=== PATIENT | male | born 1995 | race African-American/Black ===

== ENCOUNTER → 2016-10-22 17:30 | Emergency (ER) | payer SELFPAY ==
[2016-10-22 19:46] VITALS: BP 106/60
--- NOTE | 2016-10-23 13:04 | ED ---
hilario Mcgrath Timothy, scribed for Nael Smith MD on 10/22/16 at 1856 . Head Injury - HPI Summary HPI Summary: Kelsey Ahumada is a 21 yo male presenting to [facility]. Per EMs, Pt was drinking EtOH with friends when he fell and hit his head. Per triage, there are no mcconnell, and Pt denies pain or LOC. Per EMS [employer] was called and they told him he had to come to [facility] to be evaluated S/P head trauma. Pt states he was drinking EtOH and took one xanax. He denies any PMHx. - History Of Current Complaint Chief Complaint: EDSubstanceAbuse Stated Complaint: 2208 POSSIBLE OVERDOSE Time Seen by Provider: 10/22/16 17:56 Hx Obtained From: Patient Mechanism Of Injury: Fall From A Standing Position Onset/Duration: Started Hours Ago, Still Present Onset of Pain: Immediate Severity Currently: Moderate Severity Initially: Moderate Pain Intensity: 0 Pain Scale Used: 0-10 Numeric Location of Head Injury: Diffuse - Allergies/Home Medications Allergies/Adverse Reactions: Allergies Allergy/AdvReac Type Severity Reaction Status Date / Time No Known Allergies Allergy Unverified 10/01/15 09:44 PMH/Surg Hx/FS Hx/Imm Hx Endocrine/Hematology History: Denies: Hx Anticoagulant Therapy, Hx Blood Disorders Respiratory History: Reports: Hx Asthma GI History: Denies: Hx Gastroesophageal Reflux Disease History: Denies: Hx Acute Renal Failure Musculoskeletal History: Denies: Hx Arthritis, Other Musculoskeletal History Sensory History: Reports: Hx Contacts or Glasses Opthamlomology History: Reports: Hx Contacts or Glasses Neurological History: Denies: Hx Peripheral Neuropathy Psychiatric History: Denies: Hx Anxiety, Hx Depression, Hx Substance Abuse - Immunization History Date of Tetanus Vaccine: unknown Date of Influenza Vaccine: no Infectious Disease History: No Infectious Disease History: Denies: Hx of Known/Suspected MRSA, Hx Shingles, Traveled Outside the [place] in Last 30 Days - Family History Known Family History: Positive: None Negative: Cardiac Disease, Hypertension, Diabetes - Social History Alcohol Use: Weekly Substance Use Type: Reports: Prescribed Smoking Status (MU): Heavy Every Day Tobacco Smoker Review of Systems Constitutional: Negative Eyes: Negative ENT: Negative Cardiovascular: Negative Respiratory: Negative Gastrointestinal: Negative Genitourinary: Negative Musculoskeletal: Negative Skin: Negative Neurological: Other - head injury Psychological: Normal All Other Systems Reviewed And Are Negative: Yes Physical Exam Triage Information Reviewed: Yes Vital Signs On Initial Exam: Initial Vitals Temp Pulse Resp BP Pulse Ox 98.3 F 86 16 127/74 97 10/22/16 17:39 10/22/16 17:39 10/22/16 17:39 10/22/16 17:39 10/22/16 17:39 Vital Signs Reviewed: Yes Appearance: Positive: Well-Appearing, No Pain Distress, Well-Nourished Skin: Positive: Warm, Skin Color Reflects Adequate Perfusion, Dry Head/Face: Positive: Normal Head/Face Inspection Eyes: Positive: Normal ENT: Positive: Normal ENT inspection Neck: Positive: Supple, Nontender Respiratory/Lung Sounds: Positive: Clear to Auscultation, Breath Sounds Present Cardiovascular: Positive: RRR Abdomen Description: Positive: Nontender, Soft Bowel Sounds: Positive: Present Musculoskeletal: Positive: Normal Neurological: Positive: Normal Psychiatric: Positive: Normal, Affect/Mood Appropriate - [place] Coma Scale Coma Scale Total: 14 Diagnostics - Vital Signs Vital Signs Temp Pulse Resp BP Pulse Ox 10/22/16 17:39 98.3 F 86 16 127/74 97 - Laboratory Lab Statement: Any lab studies that have been ordered have been reviewed, and results considered in the medical decision making process. Head Injury Course/Dx Course Of Treatment: Mr. Ahumada fell promptly asleep shortly after arrival here and I observed him for a couple of hours. He woke up and continued to be cooperative and have no C/O. He was clinically sober and I let him go. Assessment/Plan: Kelsey Ahumada is a 21 yo male presenting to [facility] police order after falling and hitting his head while drinking EtOH with friends and taking one xanax. Pt denies any pain or LOC and would like to be discharged. - Diagnoses Provider Diagnoses: Head injury Discharge - Discharge Plan Condition: Stable Disposition: HOME Patient Education Materials: Head Injury (ED) Referrals: [facility] [Outside] - 2 Days Additional Instructions: Please follow up with the primary care physician provided regarding your visit to the emergency department today. Return to the emergency department with any new or recurring symptoms. The documentation as recorded by the hilario richard Timothy accurately reflects the service I personally performed and the decisions made by me, Nael Smith MD.
== END | disposition home or self-care (01) ==
LOC: ED 17:30
DX: S09.90XA Unspecified injury of head, initial encounter (principal); W19.XXXA Unspecified fall, initial encounter; Y93.9 Activity, unspecified; Y92.9 Unspecified place or not applicable; Y99.9 Unspecified external cause status; F17.210 Nicotine dependence, cigarettes, uncomplicated
CPT/HCPCS: 99282

== ENCOUNTER 2016-12-14 11:46 | Emergency (ER) | payer SELFPAY ==
[2016-12-14] MEDS ORDERED: Aspirin Low Dose CHEW TAB* 81 MG PO ONE (12:00)
[2016-12-14] MEDS ORDERED: LORazepam INJ* 2 MG/ML 1 ML VIAL IV PUSH ONE (12:01)
[2016-12-14 12:33] LABS: Hematocrit 45 % (42-52); Hemoglobin 15.2 g/dl (14.0-18.0); Mean Corpuscular HGB Conc 34 g/dl (31-36); Mean Corpuscular Hemoglobin 32 pg (27-31); Mean Corpuscular Volume 95 fL (80-94); Mean Platelet Volume 8 um3 (7.4-10.4); Red Blood Count 4.74 10^6/ul (4.0-5.4); Red Cell Distribution Width 13 % (10.5-15); White Blood Count 4.9 10^3/ul (3.5-10.8)
[2016-12-14 12:44] LABS: Albumin 4.3 g/dL (3.2-5.2); BUN/Creatinine Ratio 8.9 (8-20); Calcium 9.3 mg/dL (8.6-10.3); EGFR African American 119.9 (>60); EGFR Non-African American 93.2 (>60); Globulin 2.8 g/dL (2-4); Potassium 3.8 mmol/L (3.5-5.0); Total Bilirubin 0.8 mg/dL (0.2-1.0); Total Protein 7.1 g/dL (6.4-8.9)
--- NOTE | 2016-12-14 12:49 | RAD ---
INDICATION: Chest pain COMPARISON: None TECHNIQUE: An AP portable view obtained at 1220 hours is submitted. FINDINGS: Bones/Soft Tissues: There are no acute bony findings. Cardiomediastinal: The cardiomediastinal silhouette is normal. Lungs: There are no infiltrates. There is no pneumothorax. Pleura: There are no pleural effusions. Other: None IMPRESSION: NO ACTIVE DISEASE.
[2016-12-14] MEDS ORDERED: Albuterol/Ipratropium NEB.SOL* Albuterol 2.5 MG/Ipratropium 0.5 MG 3 ML INH ONE (13:00)
[2016-12-14 17:56] VITALS: BP 114/73
== END 2016-12-14 17:57 | disposition home or self-care (01) ==
LOC: ED 11:46
DX: R07.9 Chest pain, unspecified (principal)
CPT/HCPCS: 36415; 71010; 80053; 83605; 84484; 85025; 85379; 93005; 94640; 96374; 99283; A9270-GY; J2060

== ENCOUNTER 2017-01-09 09:07 | Emergency (ER) | payer SELFPAY ==
[2017-01-09] MEDS: NS 0.9% 1000 ML* 2,000 ML IV ONE (09:30)
[2017-01-09 09:44] LABS: Hematocrit 44 % (42-52); Hemoglobin 15.3 g/dl (14.0-18.0); Mean Corpuscular HGB Conc 35 g/dl (31-36); Mean Corpuscular Hemoglobin 32 pg (27-31); Mean Corpuscular Volume 93 fL (80-94); Mean Platelet Volume 8 um3 (7.4-10.4); Red Blood Count 4.78 10^6/ul (4.0-5.4); Red Cell Distribution Width 13 % (10.5-15); White Blood Count 6.7 10^3/ul (3.5-10.8)
[2017-01-09 09:55] LABS: ALT 15 U/L (7-52); AST 18 U/L (13-39); Albumin 4.8 g/dL (3.2-5.2); Alkaline Phosphatase 51 U/L (34-104); Anion Gap 6 mmol/L (2-11); BUN/Creatinine Ratio 7.9 (8-20); Blood Urea Nitrogen 7 mg/dL (6-24); CO2 Carbon Dioxide 28 mmol/L (22-32); Calcium 9.5 mg/dL (8.6-10.3); Chloride 103 mmol/L (101-111); Creatine Kinase 254 U/L (10-223); EGFR African American 138.8 (>60); EGFR Non-African American 107.9 (>60); Globulin 3.1 g/dL (2-4); Glucose 143 mg/dL (70-100); Potassium 3.5 mmol/L (3.5-5.0); Sodium 137 mmol/L (133-145); Total Protein 7.9 g/dL (6.4-8.9)
[2017-01-09 10:23] LABS: Acetaminophen < 15 mcg/mL; Alcohol < 10 mg/dL (<10); Salicylate < 2.50 mg/dL (<30)
[2017-01-09 10:32] LABS: TSH (Thyroid Stimulating Horm) 2.19 mcIU/mL (0.34-5.60)
[2017-01-09 13:11] LABS: Urine Bilirubin Negative (Negative); Urine Glucose Negative (Negative); Urine Nitrite Negative (Negative)
[2017-01-09 13:20] LABS: Benzodiazepine Urine Screen Presumptive Positive (None Detect)
[2017-01-09 15:02] VITALS: BP 125/93
--- NOTE | 2017-01-09 15:21 | ED ---
Geeta Mcgrath Edward, scribed for Nicholas Rincon MD on 01/09/17 at 0915 . 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 Denies SI. LOC. Pt states he has never done anything like this before. Denies pain, SOB. Pt reports marijuana use. - History Of Current Complaint Stated Complaint: OVERDOSE Hx Obtained From: Patient Onset/Duration of Drug/ETOH Abuse: Hours Timing Of Abuse: Recent Cessation For A Period Of Character: Lethargic Associated Signs And Symptoms: Negative - Allergies/Home Medications Allergies/Adverse Reactions: Allergies Allergy/AdvReac Type Severity Reaction Status Date / Time No Known Allergies Allergy Unverified 12/14/16 11:51 PMH/Surg Hx/FS Hx/Imm Hx Previously Healthy: No Endocrine/Hematology History: Denies: Hx Anticoagulant Therapy, Hx Blood Disorders Respiratory History: Reports: Hx Asthma GI History: Denies: Hx Gastroesophageal Reflux Disease History: Denies: Hx Acute Renal Failure Musculoskeletal History: Denies: Hx Arthritis, Other Musculoskeletal History Sensory History: Reports: Hx Contacts or Glasses Opthamlomology History: Reports: Hx Contacts or Glasses Neurological History: Denies: Hx Peripheral Neuropathy Psychiatric History: Denies: Hx Anxiety, Hx Depression, Hx Substance Abuse - Immunization History Date of Tetanus Vaccine: unknown Date of Influenza Vaccine: no Infectious Disease History: Denies: Hx of Known/Suspected MRSA, Hx Shingles - Family History Known Family History: Positive: Other - Stroke - great-grandparents Negative: Cardiac Disease, Hypertension, Diabetes - Social History Alcohol Use: Weekly Hx Substance Use: Yes Substance Use Type: Reports: Prescribed Substance Use Comment - Amount & Last Used: unspecified Hx Tobacco Use: Yes Smoking Status (MU): Heavy Every Day Tobacco Smoker Review of Systems Positive: Fatigue Eyes: Negative ENT: Negative Cardiovascular: Negative Respiratory: Negative Gastrointestinal: Negative Genitourinary: Negative Musculoskeletal: Negative Skin: Negative Neurological: Negative Psychological: Normal All Other Systems Reviewed And Are Negative: Yes Physical Exam - Summary Physical Exam Summary: The patient is well-nourished in no acute distress and in no acute pain. The patient is lethargic but arousable. The skin is warm and dry and skin color reflects adequate perfusion. HEENT: The head is normocephalic and atraumatic. The pupils are equal and reactive. The conjunctivae are clear and without drainage. Nares are patent and without drainage. Mouth reveals moist mucous membranes and the throat is without erythema and exudate. The external ears are intact. The ear canals are patent and without drainage. The tympanic membranes are intact. Pupils not pinpoint but reactive. Neck is supple with full range of motion and non-tender. There are no carotid bruits. There is no neck vein distension. Respiratory: Chest is non-tender. Lungs are clear to auscultation and breath sounds are symmetrical and equal. Cardiovascular: Hear is regular rate and rhythm. There is no murmur or rub auscultated. There is no peripheral edema and pulses are symmetrical and equal. Abdomen: The abdomen is soft and non-tender. There are normal bowel sounds heard in all four quadrants and there is no organomegaly palpated. Musculoskeletal: There is no back pain noted. Extremities are non-tender with full range of motion. There is good capillary refill. There is no peripheral edema or calf tenderness elicited. Neurological: Patient is alert and oriented to person, place and time. The patient has symmetrical motor strength in all four extremities. Cranial nerves are grossly intact. Deep tendon reflexes are symmetrical and equal in all four extremities. Pt follows commands. There are no neurological deficits noted. Psychiatric: The patient has an appropriate affect and does not exhibit any anxiety or depression. Triage Information Reviewed: Yes Vital Signs On Initial Exam: Initial Vitals Temp Pulse Resp BP Pulse Ox 97.1 F 74 22 171/116 95 01/09/17 09:14 01/09/17 09:14 01/09/17 09:14 01/09/17 09:14 01/09/17 09:14 Vital Signs Reviewed: Yes Diagnostics - Vital Signs Vital Signs Temp Pulse Resp BP Pulse Ox 01/09/17 15:01 97.3 F 68 18 125/93 01/09/17 15:00 60 15 98 01/09/17 14:58 59 12 125/93 98 01/09/17 14:00 59 13 98 01/09/17 13:09 48 12 95 01/09/17 12:11 14 01/09/17 11:30 72 15 130/86 98 01/09/17 10:00 70 19 154/111 95 01/09/17 09:30 69 21 160/112 96 01/09/17 09:18 97.1 F 72 21 171/116 98 01/09/17 09:14 97.1 F 74 22 171/116 95 - Laboratory Lab Results: Lab Results 01/09/17 01/09/17 01/09/17 Range/Units 09:20 09:20 09:20 WBC 6.7 (3.5-10.8) 10^3/ul RBC 4.78 (4.0-5.4) 10^6/ul Hgb 15.3 (14.0-18.0) g/dl Hct 44 (42-52) % MCV 93 (80-94) fL MCH 32 H (27-31) pg MCHC 35 (31-36) g/dl RDW 13 (10.5-15) % Plt Count 216 (150-450) 10^3/ul MPV 8 (7.4-10.4) um3 Neut % (Auto) 63.3 (38-83) % Lymph % (Auto) 24.6 L (25-47) % [place] % (Auto) 9.2 H (1-9) % Eos % (Auto) 2.5 (0-6) % Baso % (Auto) 0.4 (0-2) % Absolute Neuts (auto) 4.2 (1.5-7.7) 10^3/ul Absolute Lymphs (auto) 1.6 (1.0-4.8) 10^3/ul Absolute Monos (auto) 0.6 (0-0.8) 10^3/ul Absolute Eos (auto) 0.2 (0-0.6) 10^3/ul Absolute Basos (auto) 0 (0-0.2) 10^3/ul Absolute Nucleated RBC 0 10^3/ul Nucleated RBC % 0 Sodium 137 (133-145) mmol/L Potassium 3.5 (3.5-5.0) mmol/L Chloride 103 (101-111) mmol/L Carbon Dioxide 28 (22-32) mmol/L Anion Gap 6 (2-11) mmol/L BUN 7 (6-24) mg/dL Creatinine 0.89 (0.67-1.17) mg/dL Est GFR ( Amer) 138.8 (>60) Est GFR (Non-Af Amer) 107.9 (>60) BUN/Creatinine Ratio 7.9 L (8-20) Glucose 143 H (70-100) mg/dL Lactic Acid 1.7 (0.5-2.0) mmol/L Calcium 9.5 (8.6-10.3) mg/dL Total Bilirubin 0.70 (0.2-1.0) mg/dL AST 18 (13-39) U/L ALT 15 (7-52) U/L Alkaline Phosphatase 51 (34-104) U/L Total Creatine Kinase 254 H (10-223) U/L Troponin I 0.00 (<0.04) ng/mL Total Protein 7.9 (6.4-8.9) g/dL Albumin 4.8 (3.2-5.2) g/dL Globulin 3.1 (2-4) g/dL Albumin/Globulin Ratio 1.5 (1-3) TSH 2.19 (0.34-5.60) mcIU/mL Urine Color Urine Appearance Urine pH (5-9) Ur Specific [place] (1.010-1.030) Urine Protein (Negative) Urine Ketones (Negative) Urine Blood (Negative) Urine Nitrate (Negative) Urine Bilirubin (Negative) Urine Urobilinogen (Negative) Ur Leukocyte Esterase (Negative) Urine Glucose (Negative) Salicylates < 2.50 (<30) mg/dL Urine Opiates Screen (None Detect) Acetaminophen < 15 mcg/mL Ur Barbiturates Screen (None Detect) Ur Phencyclidine Scrn (None Detect) Ur Amphetamines Screen (None Detect) U Benzodiazepines Scrn (None Detect) Urine Cocaine Screen (None Detect) U Cannabinoids Screen (None Detect) Serum Alcohol < 10 (<10) mg/dL 01/09/17 01/09/17 Range/Units 12:46 12:46 WBC (3.5-10.8) 10^3/ul RBC (4.0-5.4) 10^6/ul Hgb (14.0-18.0) g/dl Hct (42-52) % MCV (80-94) fL MCH (27-31) pg MCHC (31-36) g/dl RDW (10.5-15) % Plt Count (150-450) 10^3/ul MPV (7.4-10.4) um3 Neut % (Auto) (38-83) % Lymph % (Auto) (25-47) % [place] % (Auto) (1-9) % Eos % (Auto) (0-6) % Baso % (Auto) (0-2) % Absolute Neuts (auto) (1.5-7.7) 10^3/ul Absolute Lymphs (auto) (1.0-4.8) 10^3/ul Absolute Monos (auto) (0-0.8) 10^3/ul Absolute Eos (auto) (0-0.6) 10^3/ul Absolute Basos (auto) (0-0.2) 10^3/ul Absolute Nucleated RBC 10^3/ul Nucleated RBC % Sodium (133-145) mmol/L Potassium (3.5-5.0) mmol/L Chloride (101-111) mmol/L Carbon Dioxide (22-32) mmol/L Anion Gap (2-11) mmol/L BUN (6-24) mg/dL Creatinine (0.67-1.17) mg/dL Est GFR ( Amer) (>60) Est GFR (Non-Af Amer) (>60) BUN/Creatinine Ratio (8-20) Glucose (70-100) mg/dL Lactic Acid (0.5-2.0) mmol/L Calcium (8.6-10.3) mg/dL Total Bilirubin (0.2-1.0) mg/dL AST (13-39) U/L ALT (7-52) U/L Alkaline Phosphatase (34-104) U/L Total Creatine Kinase (10-223) U/L Troponin I (<0.04) ng/mL Total Protein (6.4-8.9) g/dL Albumin (3.2-5.2) g/dL Globulin (2-4) g/dL Albumin/Globulin Ratio (1-3) TSH (0.34-5.60) mcIU/mL Urine Color Colorless Urine Appearance Clear Urine pH 8.0 (5-9) Ur Specific [place] 1.004 L (1.010-1.030) Urine Protein Negative (Negative) Urine Ketones Negative (Negative) Urine Blood Negative (Negative) Urine Nitrate Negative (Negative) Urine Bilirubin Negative (Negative) Urine Urobilinogen Negative (Negative) Ur Leukocyte Esterase Negative (Negative) Urine Glucose Negative (Negative) Salicylates (<30) mg/dL Urine Opiates Screen None detected (None Detect) Acetaminophen mcg/mL Ur Barbiturates Screen None detected (None Detect) Ur Phencyclidine Scrn None detected (None Detect) Ur Amphetamines Screen Presumptive positive H (None Detect) U Benzodiazepines Scrn Presumptive positive H (None Detect) Urine Cocaine Screen None detected (None Detect) U Cannabinoids Screen Presumptive positive H (None Detect) Serum Alcohol (<10) mg/dL Result Diagrams: 01/09/17 09:20 01/09/17 09:20 Lab Statement: Any lab studies that have been ordered have been reviewed, and results considered in the medical decision making process. - EKG 1 EKG Rhythm: Sinus Rhythm - @ 73 BPM EKG Interpretation: 09:21 - Normal axis. 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 Pt is fatigued in the ED. Denies SI. LOC. Pt states he has never done anything like this before. Denies pain, SOB. Pt reports marijuana use. EKG 09:21 - SR @ 73 BPM. Normal axis. Hyperacute T waves not suggestive of STEMI. Pt will be d/c home with f/u with PCP. - Diagnoses Differential Diagnosis/HQI/PQRI: Positive: Metabolic Disorder, Other - substance abuse, no evidence of depression, recrational abuse Provider Diagnoses: Polysubstance abuse Discharge - Discharge Plan Condition: Stable Disposition: HOME Patient Education Materials: Polysubstance Abuse (ED) Referrals: [facility] [Outside] - 3 Days (PLEASE F/U IN 2-3 DAYS) The documentation as recorded by the Geeta richard Edward accurately reflects the service I personally performed and the decisions made by , Nicholas Rincon MD.
== END 2017-01-09 15:01 | disposition home or self-care (01) ==
LOC: ED 09:07
DX: R53.83 Other fatigue (principal); F19.10 Other psychoactive substance abuse, uncomplicated; F17.210 Nicotine dependence, cigarettes, uncomplicated
CPT/HCPCS: 36415; 80053; 80307; 80320; 80329; 81003; 82550; 83605; 84443; 84484; 85025; 93005; 99283; G0480

== ENCOUNTER 2017-02-11 01:20 | Emergency (ER) | payer SELFPAY ==
--- NOTE | 2017-02-11 06:02 | ED ---
Reece Mcgrath Rebecca, scribed for Kit Rockwell MD on 02/11/17 at 0139 . Substance Abuse/Use - HPI Summary HPI Summary: pt is a 21 y/o M BIB police as a 2208 who presents to ED as stuporous. Per triage, he was found by police walking in the street, then at [facility]. Per triage, EtOH and drug use was reported, though on evaluation pt states "I took 2 Xanax" and denies any other alcohol or drug use. Per police, pt was staggering and fell multiple times while transporting him. - History Of Current Complaint Chief Complaint: EDSubstanceAbuse Stated Complaint: 2208 Time Seen by Provider: 02/11/17 01:30 Hx Obtained From: Patient, Other: - Police Ingestion History: Type/Name Of Drug - Xanax, suspected EtOH and drug use Overdose Characteristics: Oral Character: Stuporous Aggravating Factor(s): Nothing Alleviating Factor(s): Nothing - Allergies/Home Medications Allergies/Adverse Reactions: Allergies Allergy/AdvReac Type Severity Reaction Status Date / Time No Known Allergies Allergy Unverified 12/14/16 11:51 PMH/Surg Hx/FS Hx/Imm Hx Endocrine/Hematology History: Denies: Hx Anticoagulant Therapy, Hx Blood Disorders Respiratory History: Reports: Hx Asthma GI History: Denies: Hx Gastroesophageal Reflux Disease History: Denies: Hx Acute Renal Failure Musculoskeletal History: Denies: Hx Arthritis, Other Musculoskeletal History Sensory History: Reports: Hx Contacts or Glasses Opthamlomology History: Reports: Hx Contacts or Glasses Neurological History: Denies: Hx Peripheral Neuropathy Psychiatric History: Reports: Hx Anxiety Denies: Hx Depression, Hx Substance Abuse - Immunization History Date of Tetanus Vaccine: unknown Date of Influenza Vaccine: no Infectious Disease History: No Infectious Disease History: Denies: Hx of Known/Suspected MRSA, Hx Shingles, Traveled Outside the [place] in Last 30 Days - Family History Known Family History: Positive: Other - Stroke - great-grandparents Negative: Cardiac Disease, Hypertension, Diabetes - Social History Alcohol Use: Weekly Hx Substance Use: Yes Substance Use Type: Reports: Prescribed Substance Use Comment - Amount & Last Used: unspecified Hx Tobacco Use: Yes Smoking Status (MU): Heavy Every Day Tobacco Smoker Review of Systems Negative: Fever Positive: Other - Stuporous s/p suspected drug use All Other Systems Reviewed And Are Negative: Yes Physical Exam - Summary Physical Exam Summary: General: well-appearing, no pain distress Skin: warm, color reflects adequate perfusion, dry Head: normal Eyes: EOMI, MITIZ ENT: normal Neck: supple, nontender Respiratory: CTA, breath sounds present Cardiovascular: RRR Abdomen: soft, nontender Bowel: present Musculoskeletal: normal, strength/ROM intact Neurological: normal, sensory/motor intact, A&O x3 Psychological: stuporous Triage Information Reviewed: Yes Vital Signs On Initial Exam: Initial Vitals Temp Pulse Resp BP Pulse Ox 98.8 F 101 16 130/51 96 02/11/17 01:20 02/11/17 01:20 02/11/17 01:20 02/11/17 01:20 02/11/17 01:20 Vital Signs Reviewed: Yes Diagnostics - Vital Signs Vital Signs Temp Pulse Resp BP Pulse Ox 02/11/17 01:20 98.8 F 101 16 130/51 96 - Laboratory Lab Statement: Any lab studies that have been ordered have been reviewed, and results considered in the medical decision making process. Course/Dx - Course Assessment/Plan: Patient medications reviewed. BP noted and advised to f/u with PCP. DISCHARGE HOME STABLE. - Diagnoses Provider Diagnoses: Altered mental state Discharge - Discharge Plan Condition: Stable Disposition: HOME Patient Education Materials: Altered Mental Status (ED) Referrals: No Primary Care Phys,NOPCP [Primary Care Provider] - Additional Instructions: FOLLOW UP WITH YOUR DOCTOR. RETURN TO THE EMERGENCY DEPARTMENT FOR ANY WORSENING OF YOUR CONDITION OR QUESTIONS OR CONCERNS. The documentation as recorded by the Reece richard Rebecca accurately reflects the service I personally performed and the decisions made by me, Kit Rockwell MD.
[2017-02-11 08:08] VITALS: BP 125/74
== END 2017-02-11 08:07 | disposition home or self-care (01) ==
LOC: ED 01:20
DX: R41.82 Altered mental status, unspecified (principal); F17.210 Nicotine dependence, cigarettes, uncomplicated
CPT/HCPCS: 99282

== ENCOUNTER 2017-05-26 14:36 | Emergency (ER) | payer SELFPAY ==
[2017-05-26 19:02] VITALS: BP 143/73
--- NOTE | 2017-05-27 11:39 | ED ---
Clarita Mcgrath Thomas, scribed for Nael Smith MD on 05/26/17 at 1834 . Complex/Multi-Sys Presentation - HPI Summary HPI Summary: This patient is a 21 year old M presenting to [facility] with chief complaints of dental pain and epigastric pain since 2 months ago. The pain radiates down from his right jaw to neck. The patient rates the pain 5/10 in severity. Symptoms aggravated by breathing. Symptoms alleviated by nothing. The patient does not have health insurance and he has been unable to see a dentist. - History Of Current Complaint Chief Complaint: EDDentalPain Time Seen by Provider: 05/26/17 17:48 Hx Obtained From: Patient Onset/Duration: Gradual Onset, Lasting Weeks, Still Present Timing: Constant Severity Currently: Moderate - 5/10 Location: Pain At: - of dental pain and epigastric pain, Radiates To: - The pain radiates down from his right jaw to neck. Aggravating Factor(s): Symptoms aggravated by breathing - Allergies/Home Medications Allergies/Adverse Reactions: Allergies Allergy/AdvReac Type Severity Reaction Status Date / Time No Known Allergies Allergy Unverified 12/14/16 11:51 PMH/Surg Hx/FS Hx/Imm Hx Endocrine/Hematology History: Denies: Hx Anticoagulant Therapy, Hx Blood Disorders Respiratory History: Reports: Hx Asthma GI History: Denies: Hx Gastroesophageal Reflux Disease History: Denies: Hx Acute Renal Failure Musculoskeletal History: Denies: Hx Arthritis, Other Musculoskeletal History Sensory History: Reports: Hx Contacts or Glasses Opthamlomology History: Reports: Hx Contacts or Glasses Neurological History: Denies: Hx Peripheral Neuropathy Psychiatric History: Reports: Hx Anxiety Denies: Hx Depression, Hx Substance Abuse - Immunization History Date of Tetanus Vaccine: unknown Date of Influenza Vaccine: no Infectious Disease History: No Infectious Disease History: Denies: Hx of Known/Suspected MRSA, Hx Shingles, Traveled Outside the [place] in Last 30 Days - Family History Known Family History: Positive: None, Other - Stroke - great-grandparents Negative: Cardiac Disease, Hypertension, Diabetes - Social History Alcohol Use: Weekly Hx Substance Use: Yes Substance Use Type: Reports: Prescribed Substance Use Comment - Amount & Last Used: unspecified Hx Tobacco Use: Yes Smoking Status (MU): Heavy Every Day Tobacco Smoker Review of Systems Negative: Fever Positive: Dental Pain Positive: Abdominal Pain All Other Systems Reviewed And Are Negative: Yes Physical Exam - Summary Physical Exam Summary: Appearance: The patient is well-nourished in no acute distress and in no acute pain. Skin: The skin is warm and dry and skin color reflects adequate perfusion. No cellulitis. HEENT: The head is normocephalic and atraumatic. The pupils are equal and reactive. The conjunctivae are clear and without drainage. Nares are patent and without drainage. Mouth reveals moist mucous membranes and the throat is without erythema and exudate. There is poor dentition with necrotic teeth. The external ears are intact. The ear canals are patent and without drainage. The tympanic membranes are intact. Neck: the neck is supple with full range of motion and non-tender. There are no carotid bruits. There is no neck vein distension. Respiratory: Chest is non-tender. Lungs are clear to auscultation and breath sounds are symmetrical and equal. Cardiovascular: Heart is regular rate and rhythm. There is no murmur or rub auscultated. There is no peripheral edema and pulses are symmetrical and equal. Abdomen: The abdomen is soft and there is epigastric tenderness. There are normal bowel sounds heard in all four quadrants and there is no organomegaly palpated. Musculoskeletal: There is no back tenderness noted. Extremities are non-tender with full range of motion. There is good capillary refill. There is no peripheral edema or calf tenderness elicited. Neurological: Patient is alert and oriented to person, place and time. The patient has symmetrical motor strength in all four extremities. Cranial nerves are grossly intact. Deep tendon reflexes are symmetrical and equal in all four extremities. Psychiatric: The patient has an appropriate affect and does not exhibit any anxiety or depression. Triage Information Reviewed: Yes Vital Signs On Initial Exam: Initial Vitals Temp Pulse Resp BP Pulse Ox 99.1 F 91 18 149/90 100 05/26/17 14:42 05/26/17 14:42 05/26/17 14:42 05/26/17 14:42 05/26/17 14:42 Vital Signs Reviewed: Yes Dental: Positive: Cellulitis @ - No sign of cellulitis or abscess - [place] Coma Scale Coma Scale Total: 15 Diagnostics - Vital Signs Vital Signs Temp Pulse Resp BP Pulse Ox 05/26/17 16:46 99 F 81 20 144/76 100 05/26/17 14:42 99.1 F 91 18 149/90 100 - Laboratory Lab Statement: Any lab studies that have been ordered have been reviewed, and results considered in the medical decision making process. Complex Multi-Symp Course/Dx Course Of Treatment: Mr. Ahumada presented with dental pain and epigastric pain that he has been battling for a couple months while he waits for insurance. His exam revealed poor dentition with no urgency and he had mild epigastric tenderness. I will give him antibiotics and pain medication for his teeth while he gets into a dentist and start him on omeprazole temporarily. - Diagnoses Provider Diagnoses: Epigastric pain, Tooth ache Discharge - Discharge Plan Condition: Stable Disposition: HOME Prescriptions: Omeprazole CAP* [Prilosec CAP* 20 MG] 20 mg PO BID #20 cap. Penicillin VK TAB* [Penicillin VK 250 mg Tab*] 500 mg PO QID #40 tab traMADol TAB* [Ultram*] 25 mg PO Q6HR PRN #20 tab MDD 4 PRN Reason: Pain traMADol TAB* [Ultram*] 25 mg PO Q6HR PRN #20 tab MDD 4 PRN Reason: Pain traMADol TAB* [Ultram*] 25 mg PO Q6HR PRN #20 tab MDD 4 PRN Reason: Pain Patient Education Materials: Toothache (ED), Epigastric Pain (ED) [place] [facility] [place] [facility] [place]Outside] - 3 Days Additional Instructions: Use the physician referral service to find a primary care physician and make an appointment. Also, you should follow up with a dentist. Return to the emergency department for any new or worsening symptoms. The documentation as recorded by the Clarita richard Thomas accurately reflects the service I personally performed and the decisions made by me, Nael Smith MD.
== END 2017-05-26 19:01 | disposition home or self-care (01) ==
LOC: ED 14:36
DX: K08.89 Other specified disorders of teeth and supporting structures (principal); R10.13 Epigastric pain
CPT/HCPCS: 99282

== ENCOUNTER 2017-07-05 10:37 | Emergency (ER) | payer SELFPAY ==
[2017-07-05 10:47] VITALS: BP 118/79
--- NOTE | 2017-07-05 11:08 | UC ---
Respiratory Complaint HPI - HPI Summary HPI Summary: 21 y/o male presents to the urgent care c/o dry cough w/ chest pain for the past 5 days. Pt reports symptoms started w/ common cold, body aches,SANTOYO, chills. then cough, however mild epigastric abdominal pain radiating to the chest developed, specially when he coughs. Pt states he had similar symptoms last year. He went to the ER and after all tests were normal, he was d/c home. He doesn't have a PCP. He states he drinks alcohol and smokes on a daily bases. Pain 7/10 sharp at times and aggravated w/ movement or when he coughs. Pt denies fever, chills,SOB abdominal pain, N/V/D. Pt smokes marijuana occasionally - History of Current Complaint Chief Complaint: UCRespiratory Stated Complaint: CHEST PAIN Time Seen by Provider: 07/05/17 11:07 Hx Obtained From: Patient Onset/Duration: Gradual Onset, Lasting Weeks - 1 week, Still Present, Worse Since - yesterday Timing: Intermittent Episodes Severity Initially: Mild Severity Currently: Moderate Pain Intensity: 7 Pain Scale Used: 0-10 Numeric Character: Cough: Nonproductive Aggravating Factors: Other - sitting Alleviating Factors: Nothing Associated Signs And Symptoms: Positive: Chills, URI, Nasal Congestion. Negative: Fever - Risk Factors Pulmonary Embolism Risk Factors: Negative Cardiac Risk Factors: Negative Pseudomonas Risk Factors: Negative Tuberculosis Risk Factors: Negative - Allergies/Home Medications Allergies/Adverse Reactions: Allergies Allergy/AdvReac Type Severity Reaction Status Date / Time No Known Allergies Allergy Unverified 12/14/16 11:51 PMH/Surg Hx/FS Hx/Imm Hx Previously Healthy: Yes Respiratory History: Asthma Other History Of: Negative For: Anticoagulant Therapy - Surgical History Surgical History: Unable to Obtain/Confirm - Family History Known Family History: Positive: None, Diabetes Negative: Cardiac Disease, Hypertension Family History: Stroke - great-grandparents - Social History Occupation: Student Lives: With Family Alcohol Use: Weekly Substance Use Type: Prescribed Substance Use Comment - Amount & Last Used: unspecified Smoking Status (MU): Heavy Every Day Tobacco Smoker Household Exposure Type: Cigarettes Review of Systems Constitutional: Negative Skin: Negative Eyes: Negative ENT: Nasal Discharge, Sinus Congestion Respiratory: Cough - dry Cardiovascular: Chest Pain Gastrointestinal: Abdominal Pain - epigastri abdominal pain Genitourinary: Negative Motor: Negative Neurovascular: Negative Musculoskeletal: Negative Neurological: Negative Psychological: Negative Is Patient Immunocompromised?: No All Other Systems Reviewed And Are Negative: Yes Physical Exam Triage Information Reviewed: Yes Vital Signs: Initial Vital Signs Temp 97.3 F 07/05/17 10:44 Pulse 75 07/05/17 10:44 Resp 16 07/05/17 10:44 BP 118/79 07/05/17 10:44 Pulse Ox 100 07/05/17 10:44 - Additional Comments VITAL SIGNS: Reviewed. GENERAL: Patient is a well developed and nourished male who is sitting comfortable in the examining table. Patient is not in any acute respiratory distress. HEAD AND FACE: No signs of trauma. No ecchymosis, hematomas or skull depressions. No sinus tenderness. edematous erythematous nasal mucosa with yellowish discharge, EYES: PERRLA, EOMI x 2, No injected conjunctiva, clear watery eyes, no nystagmus. No photophobia. EARS: Hearing grossly intact. Ear canals and tympanic membranes are within normal limits. MOUTH: Positive pharynx with erythema, no exudates,no palatal petechiae. no B/L tonsillar enlargement Uvula in midline. NECK: Supple, trachea is midline, Positive anterior cervical lymphadenopathy, no JVD, no carotid bruit, no c-spine tenderness, neck with full ROM. No meningeal signs, no Kernig's or brudzinskis signs. CHEST: Symmetric, no tenderness at palpation LUNGS: Clear to auscultation bilaterally. No wheezing, rhonchi or crackles. CVS: Regular rate and rhythm, S1 and S2 present, no murmurs or gallops appreciated. ABDOMEN: Flat with no distention. No surface trauma, scars, incisions. hyperactive bowel sounds present in all four quadrants. Tenderness over the epigastric area., no guarding, rigidity to palpation. No masses palpated, no pulsation in epigastric area. No organomegaly. Negative [place] signs. No periumbilical tenderness. No rebound in the lower quadrants. NT over McBurneys point. Good femoral pulses bilaterally. No hernia noted. No CVAT bilaterally. EXTREMITIES: FROM in all major joints, no edema, no cyanosis or clubbing. NEURO: Alert and oriented x 3. No acute neurological deficits. Speech is normal and follows commands. SKIN: Dry and warm UC Diagnostic Evaluation - Laboratory O2 Sat by Pulse Oximetry: 100 Respiratory Course/Dx - Course Course Of Treatment: 21 y/o male presents to the urgent care c/o dry cough w/ chest pain for the past 5 days. Pt reports symptoms started w/ common cold, body aches,SANTOYO, chills. then cough, however mild epigastric abdominal pain radiating to the chest developed, specially when he coughs. Pt states he had similar symptoms last year. He went to the ER and after all tests were normal, he was d/c home. He doesn't have a PCP. He states he drinks alcohol and smokes on a daily bases. Pain 7/10 sharp at times and aggravated w/ movement or when he coughs. Pt denies fever, chills,SOB abdominal pain, N/V/D. Pt smokes marijuana occasionally.Hx obtained. Pt w/ URI and epigastric tenderness on examination. EKG ordered: NSR, No ST -elevation or depressions, HR 65bpm.Probably normal repolarization.Similar EKG's when compared w/ previous one. Pt probably developing a gastritis. Pt Rx Famotidine PO and Tessalon tabs to alleviate symptoms. Pt educated on dieatry modifications, smoke cessation. Pt strongly advised to f/u with GI DR Turner as soon as he gets insurance for further evalaution and treatmetn. Lyndsay given [facility] referral line to f/u w/ a PCP. Pt understood and agreed w/ D/C instructions. Pt left the clinic hemodynamically stable - Differential Dx/Diagnosis Differential Diagnosis/HQI/PQRI: Asthma, Bronchitis, Influenza, Lower Resp Infection, Sinusitis, Other - arrhythmias, GERD, gastritis. Provider Diagnoses: 1- Acute epigastric abdominal pain. 2-Upper respiratory infection Discharge - Discharge Plan Condition: Stable Disposition: HOME Prescriptions: Benzonatate CAP* [Tessalon 100 MG CAP*] 100 mg PO TID PRN #21 cap PRN Reason: Cough Famotidine TAB* [Pepcid 20 MG TAB*] 20 mg PO BID #60 tab Patient Education Materials: Gastritis (ED), Upper Respiratory Infection (ED) Referrals: [facility] [Outside] - 1 Week Kalyan Vaughn MD [Medical Doctor] - 1 Week Additional Instructions: 1- Please take mediation as directed. Start dietary modification; avoid drinking alcohol, smoking, eat spicy food, chocolates, citric fruits. Avoid logn periods of time w/o eating anything. 2- Please f/u W/ [facility] [employer] Dr Turner for further evaluation and treatment on you symptoms. 3- Please Take Tessalon Tabs pO to alleviate cough. Increase fluid intake , eat well and rest. 4-If you develop severe epigastric pain or chest pain w/ sOB please go immediately to the ER for further management
== END 2017-07-05 12:04 | disposition home or self-care (01) ==
LOC: UCEAST 10:37
DX: R10.13 Epigastric pain (principal); J06.9 Acute upper respiratory infection, unspecified; J45.909 Unspecified asthma, uncomplicated; F17.210 Nicotine dependence, cigarettes, uncomplicated
CPT/HCPCS: 93005; 99212; G0463

== ENCOUNTER 2018-02-06 16:22 | Emergency (ER) | payer MEDICAID ==
[2018-02-06] MEDS ORDERED: Al Hydrox/Mg Hydrox/Simet LIQ* 30 ML UDC PO ONE (17:44)
[2018-02-06] MEDS ORDERED: Lidocaine 2% VISCOUS* 15 ML UDC PO ONE (17:44)
--- NOTE | 2018-02-06 17:50 | ED ---
GI/ HPI - HPI Summary HPI Summary: Pt. is a 22 y.o male who presents to the ER for complaints of epigastric pain, blood and urine and stool. 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 Pt. states he has a history of GI ulcer and currently takes omeprazole. Pt. states over the last several days he has noticed bright red blood in his stool. No pain with bowel movement or diarrhea. He also notes blood in urine. No other significant past medical hx. Pt. denies alcohol or drug use. Symptoms are moderate in severity. No current modifying factors. Pt. states he has an apt. with his PCP in two days. - History of Current Complaint Chief Complaint: EDGIBleed Time Seen by Provider: 02/06/18 17:34 Stated Complaint: BLOOD IN STOOL Hx Obtained From: Patient Pain Intensity: 6 - Allergy/Home Medications Allergies/Adverse Reactions: Allergies Allergy/AdvReac Type Severity Reaction Status Date / Time No Known Allergies Allergy Verified 02/06/18 16:34 Home Medications: Home Medications Gabapentin 600 mg PO BID 02/06/18 [History Confirmed 02/06/18] Ibuprofen TAB* [Motrin TAB* 600 MG] 600 mg PO Q8H PRN 02/06/18 [History Confirmed 02/06/18] PMH/Surg Hx/FS Hx/Imm Hx Previously Healthy: Yes Endocrine/Hematology History: Denies: Hx Anticoagulant Therapy, Hx Blood Disorders Respiratory History: Reports: Hx Asthma GI History: Denies: Hx Gastroesophageal Reflux Disease History: Denies: Hx Acute Renal Failure Musculoskeletal History: Denies: Hx Arthritis, Other Musculoskeletal History Sensory History: Reports: Hx Contacts or Glasses Opthamlomology History: Reports: Hx Contacts or Glasses Neurological History: Denies: Hx Peripheral Neuropathy Psychiatric History: Reports: Hx Anxiety Denies: Hx Depression, Hx Substance Abuse - Immunization History Date of Tetanus Vaccine: unknown Date of Influenza Vaccine: no Infectious Disease History: No Infectious Disease History: Denies: Hx of Known/Suspected MRSA, Hx Shingles, Traveled Outside the [place] in Last 30 Days - Family History Known Family History: Positive: None, Diabetes, Other - Stroke - great- grandparents Negative: Cardiac Disease, Hypertension Family History: Stroke - great-grandparents - Social History Occupation: Employed Full-time Lives: With Family Alcohol Use: Weekly Hx Substance Use: Yes Substance Use Type: Reports: Prescribed Substance Use Comment - Amount & Last Used: unspecified Hx Tobacco Use: Yes Smoking Status (MU): Heavy Every Day Tobacco Smoker Review of Systems Constitutional: Negative Negative: Fever, Chills Eyes: Negative ENT: Negative Cardiovascular: Negative Negative: Palpitations, Chest Pain Respiratory: Negative Negative: Shortness Of Breath, Cough Positive: Abdominal Pain. Negative: Vomiting, Diarrhea, Nausea Positive: hematuria. Negative: dysuria, flank pain Skin: Negative Neurological: Negative All Other Systems Reviewed And Are Negative: Yes Physical Exam Triage Information Reviewed: Yes Vital Signs On Initial Exam: Initial Vitals Temp Pulse Resp BP Pulse Ox 98.6 F 74 16 127/81 99 02/06/18 16:28 02/06/18 16:28 02/06/18 16:28 02/06/18 16:28 02/06/18 16:28 Vital Signs Reviewed: Yes Appearance: Positive: Well-Appearing - Pt. lying in bed in NAD. Skin: Positive: Warm, Dry Head/Face: Positive: Normal Head/Face Inspection Eyes: Positive: Normal, EOMI Neck: Positive: Supple Respiratory/Lung Sounds: Positive: Clear to Auscultation, Breath Sounds Present Cardiovascular: Positive: Normal, RRR Abdomen Description: Positive: Other: - Abd. is soft with mild pain to epigastric region. No rebound tenderness or guarding. Rectal exam performed with nurse in room, Aly. No active bleeding. No hemorrhoids, fissure, abscess. Digital exam revealed no stool or blood. Neurological: Positive: Normal, CN Intact II-III Psychiatric: Positive: Affect/Mood Appropriate Diagnostics - Vital Signs Vital Signs Temp Pulse Resp BP Pulse Ox 02/06/18 16:28 98.6 F 74 16 127/81 99 - Laboratory Result Diagrams: 02/06/18 17:53 02/06/18 17:53 Lab Statement: Any lab studies that have been ordered have been reviewed, and results considered in the medical decision making process. GIGU Course/Dx - Course Course Of Treatment: Pt. presenting for epigastric burning and blood in stool and urine. He is afebrile with stable VS. Will check basic labs. He has a benign abd. exam. GI cocktail ordered. CBC shows stable H and H. Negative occult blood stool. CMP unremarkable. On re-exam pt. is feeling better after GI cocktail. Recommend he increase omeprazole to 40mg and will rx sucralfate. Pt. to f.u with his PCP as scheduled in 2 days. To return to ER if sxs change or worsen. Pt. understands and agrees with plan. - Diagnoses Provider Diagnoses: GERD (gastroesophageal reflux disease) Discharge - Sign-Out/Discharge Documenting (check all that apply): Patient Departure - Discharge Plan Condition: Good Disposition: HOME Prescriptions: Sucralfate TAB* [Carafate*] 1 gm PO QID #20 tab Patient Education Materials: Rectal Bleeding (ED), Gastroesophageal Reflux Disease (ED) Referrals: [facility] [Outside] No Primary Care Phys,NOPCP [Primary Care Provider] - Additional Instructions: Follow up with your PCP as scheduled Recommend increasing omeprazole to 40mg daily Take sucralfate as directed Avoid smoking, foods high in caffeine, acid, spice, fat Return to ER if symptoms change or worsen - Billing Disposition and Condition Condition: GOOD Disposition: Home
[2018-02-06 18:05] LABS: ABS Basophils 0 10^3/ul (0-0.2); ABS Eosinophils 0.3 10^3/ul (0-0.6); ABS Monocytes 0.6 10^3/ul (0-0.8); ABS Neutrophils 2.5 10^3/ul (1.5-7.7); ABS Nucleated RBC 0 10^3/ul; Eosinophil % 4.8 % (0-6); Hematocrit 40 % (42-52); Hemoglobin 13.4 g/dl (14.0-18.0); Lymphocyte % 36.9 % (25-47); Mean Corpuscular HGB Conc 33 g/dl (31-36); Mean Corpuscular Hemoglobin 30 pg (27-31); Mean Corpuscular Volume 89 fL (80-94); Mean Platelet Volume 8.7 um3 (7.4-10.4); Nucleated Red Blood Cells % 0.1; Platelet Count 179 10^3/ul (150-450); Red Blood Count 4.53 10^6/ul (4.00-5.40); Red Cell Distribution Width 13 % (10.5-15); White Blood Count 5.3 10^3/ul (3.5-10.8)
[2018-02-06 18:11] LABS: INR 0.96 (0.77-1.02)
[2018-02-06 18:21] LABS: EGFR Non-African American 96.8 (>60)
[2018-02-06 19:25] LABS: Urine Appearance Clear; Urine Blood Negative (Negative); Urine Color Yellow; Urine Ketones Negative (Negative); Urine Protein Negative (Negative); Urine Specific Gravity 1.026 (1.010-1.030); Urine Urobilinogen Negative (Negative)
[2018-02-07 00:26] VITALS: BP 124/78
== END 2018-02-06 20:10 | disposition home or self-care (01) ==
LOC: ED 16:22
DX: K21.9 Gastro-esophageal reflux disease without esophagitis (principal); R19.5 Other fecal abnormalities; R31.9 Hematuria, unspecified; F17.200 Nicotine dependence, unspecified, uncomplicated; Z87.19 Personal history of other diseases of the digestive system; Z79.899 Other long term (current) drug therapy
CPT/HCPCS: 36415; 80053; 81003; 82272; 83690; 85025; 85610; 99282; A9270-GY

== ENCOUNTER 2018-04-02 16:59 | Emergency (ER) | payer OTHER ==
[2018-04-02 17:16] VITALS: BP 137/78
[2018-04-02] MEDS ORDERED: Al Hydrox/Mg Hydrox/Simet LIQ* 30 ML UDC PO ONE (17:17)
[2018-04-02] MEDS ORDERED: Lidocaine 2% VISCOUS* 15 ML UDC PO ONE (17:18)
--- NOTE | 2018-04-02 17:25 | UC ---
Cardiac HPI - HPI Summary HPI Summary: 22-year-old male here with a chief complaint of epigastric pain radiating into his chest. He's had this pain on and off for 6 months. Gotten worse in the last week. Today he was lifting boxes and when he bends and lifts it makes the pain worse. He seen his primary care doctor at [place] and they've done some blood work and other evaluation he tells me he is scheduled to get an MRI this coming week of is upper abdomen. He reports having been on omeprazole without any relief. Denies any blood in his stool or black stools. The pain is short of breath he is not nauseous or sweaty. - History of Current Complaint Chief Complaint: UCGI Stated Complaint: CHEST PAIN Time Seen by Provider: 04/02/18 17:00 Pain Intensity: 7 - Allergy/Home Medications Allergies/Adverse Reactions: Allergies Allergy/AdvReac Type Severity Reaction Status Date / Time No Known Allergies Allergy Verified 04/02/18 17:16 Home Medications: Home Medications Calcium Carbonate CHEW TAB* [Tums*] 1,000 mg PO ONCE PRN 04/02/18 [History Confirmed 04/02/18] Dexmethylphenidate HCl [Focalin] 5 mg PO BID 04/02/18 [History Confirmed ] PMH/Surg Hx/FS Hx/Imm Hx Previously Healthy: Yes Other Psychological History: ADHD Other History Of: Negative For: Anticoagulant Therapy - Surgical History Surgical History: None - Family History Known Family History: Positive: None, Diabetes, Other - Stroke - great- grandparents Negative: Cardiac Disease, Hypertension Family History: Stroke - great-grandparents - Social History Alcohol Use: None Alcohol Amount: sober for 9 months Substance Use Type: None Substance Use Comment - Amount & Last Used: unspecified Smoking Status (MU): Heavy Every Day Tobacco Smoker Type: eCigarettes Amount Used/How Often: e cigarettes - 1-2 per day Household Exposure Type: Cigarettes Review of Systems All Other Systems Reviewed And Are Negative: Yes Constitutional: Positive: Negative Skin: Positive: Negative Eyes: Positive: Negative ENT: Positive: Negative Respiratory: Positive: Negative Cardiovascular: Positive: Chest Pain Gastrointestinal: Positive: Abdominal Pain Genitourinary: Positive: Negative Motor: Positive: Negative Neurovascular: Positive: Negative Musculoskeletal: Positive: Negative Neurological: Positive: Negative Psychological: Positive: Negative Is Patient Immunocompromised?: No Physical Exam Triage Information Reviewed: Yes Appearance: Well-Appearing, Well-Nourished, Pain Distress - MILD Vital Signs: Initial Vital Signs Temp 98.9 F 04/02/18 17:06 Pulse 76 04/02/18 17:06 Resp 16 04/02/18 17:06 BP 137/78 04/02/18 17:06 Pulse Ox 100 04/02/18 17:06 Vital Signs Reviewed: Yes Eye Exam: Normal Eyes: Positive: Conjunctiva Clear Neck exam: Normal Neck: Positive: Supple Respiratory Exam: Normal Respiratory: Positive: Chest non-tender, Lungs clear, Normal breath sounds, No respiratory distress Cardiovascular Exam: Normal Cardiovascular: Positive: RRR Abdomen Description: Positive: Soft, Other: - TENDER IN EPIGASTRIUM Bowel Sounds: Positive: Present Musculoskeletal Exam: Normal Musculoskeletal: Positive: Strength Intact, ROM Intact. Negative: No Edema Neurological Exam: Normal Neurological: Positive: Alert, Muscle Tone Normal Psychological Exam: Normal Psychological: Positive: Age Appropriate Behavior Skin Exam: Normal Diagnostics - EKG Cardiac Rate: NL - AT 17:03 Cardiac Rhythm: Sinus: Normal - 78BPM Ectopy: None ST Segment: Normal - Assessment/Plan Course Of Treatment: I gave the patient Maalox and viscous lidocaine. Afterwards the pain is decreased. We discussed the EKG which was normal. Patient is seeing a hand woodworking sander at [place]. The plan right now is to get back on the omeprazole and also Carafate and follow-up with his hand woodworking sander. - Clinical Impression Provider Diagnoses: EPIGASTRIC PAIN. CHEST PAIN Discharge - Sign-Out/Discharge Documenting (check all that apply): Patient Departure All imaging exams completed and their final reports reviewed: No Studies - Discharge Plan Condition: Stable Disposition: HOME Prescriptions: Omeprazole 20 mg PO BID #60 tablet. Sucralfate [Carafate] 1 gm PO QID #120 tablet Patient Education Materials: Chest Pain (ED), Epigastric Pain (ED) Referrals: Jorge L Chu DO [Primary Care Provider] - Additional Instructions: FOLLOW UP WITH YOUR DOCTOR. GET RECHECKED FOR ANY WORSENING OF YOUR CONDITION; CHEST PAIN, ABDOMINAL PAIN, SHORTNESS OF BREATH, YOU FEEL ILL OR QUESTIONS OR CONCERNS. - Billing Disposition and Condition Condition: STABLE Disposition: Home
== END 2018-04-02 17:50 | disposition home or self-care (01) ==
LOC: UCEAST 16:59
DX: R10.13 Epigastric pain (principal); R07.9 Chest pain, unspecified; F17.290 Nicotine dependence, other tobacco product, uncomplicated; F90.9 Attention-deficit hyperactivity disorder, unspecified type
CPT/HCPCS: 93005; 99212; A9270-GY; G0463

== ENCOUNTER 2018-07-12 17:07 | Emergency (ER) | payer OTHER ==
[2018-07-12 17:28] VITALS: BP 128/84
--- NOTE | 2018-07-12 17:30 | UC ---
Skin Complaint HPI - HPI Summary HPI Summary: 22 yo male presents with rash. He tells me that he was seen here at on 07/01 and dx'd with fungal infection to his groin. He was placed on terbinafine. About 5 days ago he noticed a rash on his arms and torso that is itchy. This has persisted. His groin rash has not changed. He denies fever, chills, recent illness, difficulty breathing, SOB, or edema. - History of Current Complaint Chief Complaint: UCSkin Time Seen by Provider: 07/12/18 17:29 Stated Complaint: SKIN COMPLAINT Hx Obtained From: Patient Onset/Duration: Sudden Onset Current Severity: None Pain Intensity: 0 - Allergy/Home Medications Allergies/Adverse Reactions: Allergies Allergy/AdvReac Type Severity Reaction Status Date / Time terbinafine Allergy Hives Verified 07/12/18 17:29 PMH/Surg Hx/FS Hx/Imm Hx - Additional Past Medical History Additional PMH: None Other History Of: Negative For: Anticoagulant Therapy - Surgical History Surgical History: None - Family History Known Family History: Positive: Diabetes, Other - Stroke - great-grandparents Negative: Cardiac Disease, Hypertension Family History: Stroke - great-grandparents - Social History Alcohol Use: None Alcohol Amount: sober Substance Use Type: None Substance Use Comment - Amount & Last Used: unspecified Smoking Status (MU): Heavy Every Day Tobacco Smoker Type: eCigarettes Amount Used/How Often: e cigarettes - 1-2 per day Household Exposure Type: Cigarettes Review of Systems All Other Systems Reviewed And Are Negative: Yes Constitutional: Positive: Negative Skin: Positive: Rash Eyes: Positive: Negative ENT: Positive: Negative Respiratory: Positive: Negative Cardiovascular: Positive: Negative Gastrointestinal: Positive: Negative Neurovascular: Positive: Negative Neurological: Positive: Negative Psychological: Positive: Negative Physical Exam - Summary Physical Exam Summary: GENERAL: NAD. WDWN. No pain distress. SKIN: Torso, upper arms, and forearms with scattered 2-3mm uriticaria. Mild excoriations due to itching. No edema, erythema, or open wounds. No facial, lip , or neck edema. LEFT GROIN: hyperpigmentated 5.0cm diameter area with scaling. THROAT: No edema. Airway patent. NECK: Supple. Nontender. No lymphadenopathy. CHEST: No accessory muscle use. Breathing comfortably and in no distress. CV: Pulses intact. Cap refill <2seconds NEURO: Alert. PSYCH: Age appropriate behavior. Triage Information Reviewed: Yes Vital Signs: Initial Vital Signs Temp 98.7 F 07/12/18 17:25 Pulse 82 07/12/18 17:25 Resp 14 07/12/18 17:25 BP 128/84 07/12/18 17:25 Pulse Ox 100 07/12/18 17:25 Vital Signs Reviewed: Yes Course/Dx - Course Course Of Treatment: Suspect adverse reaction to the terbinafine. I advised him to stop this and start taking a daily benadryl. He was given dexamethasone in the clinic and will rx for prednisone. Advised that when his torso/arm rash has resolved, may start the antifungal cream for suspect tinea infection of groin. If he develops swelling, difficulty breathing, SOB, or chest pain to go to the ED. Pt voiced understanding. - Diagnoses Provider Diagnosis: Adverse reaction to antifungal drug, Tinea corporis Discharge - Sign-Out/Discharge Documenting (check all that apply): Patient Departure All imaging exams completed and their final reports reviewed: No Studies - Discharge Plan Condition: Stable Disposition: HOME Prescriptions: Clotrimazole 1% CREAM* [Clotrimazole 1%*] 1 applic TOPICAL BID #1 tube predniSONE TAB* [Deltasone 20 MG TAB*] 40 mg PO DAILY #9 tab Patient Education Materials: Tinea Corporis (ED), Adverse Drug Reaction (ED) Referrals: Jorge L Chu DO [Primary Care Provider] - Additional Instructions: If you develop a fever, shortness of breath, chest pain, new or worsening symptoms - please call your PCP or go to the ED. 1) Stop taking the terbinafine as this is likely the cause of your rash 2) May use an [id number] benadryl cream for your itching 3) You were given a dose of a steroid called Dexamethasone in the clinic and prescriptions were sent as below - please finish the PREDNISONE before starting the cream for your groin rash. - Billing Disposition and Condition Condition: STABLE Disposition: Home
[2018-07-12] MEDS ORDERED: Dexamethasone TAB* 4 MG PO ONE (17:35)
== END 2018-07-12 17:46 | disposition home or self-care (01) ==
LOC: UCEAST 17:07
DX: Z88.3 Allergy status to other anti-infective agents (principal); L27.0 Generalized skin eruption due to drugs and medicaments taken internally; T49.0X5A Adverse effect of local antifungal, anti-infective and anti-inflammatory drugs, initial encounter; Y92.009 Unspecified place in unspecified non-institutional (private) residence as the place of occurrence of the external cause; B35.4 Tinea corporis; F17.290 Nicotine dependence, other tobacco product, uncomplicated
CPT/HCPCS: 99212; G0463; J8540

== ENCOUNTER 2018-08-21 17:26 | Emergency (ER) | payer OTHER ==
--- NOTE | 2018-08-21 17:46 | UC ---
Ear Complaint HPI - HPI Summary HPI Summary: 23 yo male presents with b/l ear pain R>L. He tells me that he was recently incarcerated and was treated for a right ear infection with amoxicillin for 10 days. He finished this 3 days ago and felt better for a 4-5 days. Since yesterday he has had worsening right ear pain with muffled sounds. Has noticed some drainage from the ear. Denies fever. - History of Current Complaint Stated Complaint: EAR ACHE Time Seen by Provider: 08/21/18 17:45 Hx Obtained From: Patient Onset/Duration: Sudden Onset Severity Initially: Mild Severity Currently: Moderate Pain Intensity: 5 Pain Scale Used: 0-10 Numeric - Allergies/Home Medications Allergies/Adverse Reactions: Allergies Allergy/AdvReac Type Severity Reaction Status Date / Time terbinafine Allergy Hives Verified 07/12/18 17:29 Home Medications: Home Medications Ibuprofen TAB* [Advil TAB*] 1 tab PO Q6HR PRN 08/21/18 [History Confirmed ] PMH/Surg Hx/FS Hx/Imm Hx - Additional Past Medical History Additional PMH: None Other History Of: Negative For: Anticoagulant Therapy - Surgical History Surgical History: None - Family History Known Family History: Positive: Diabetes, Other - Stroke - great-grandparents Negative: Cardiac Disease, Hypertension Family History: Stroke - great-grandparents - Social History Occupation: Employed Full-time Lives: With Family Alcohol Use: None Alcohol Amount: sober Substance Use Type: None Substance Use Comment - Amount & Last Used: unspecified Smoking Status (MU): Heavy Every Day Tobacco Smoker Type: eCigarettes Amount Used/How Often: e cigarettes - 1-2 per day Household Exposure Type: Cigarettes Review of Systems All Other Systems Reviewed And Are Negative: Yes Constitutional: Positive: Negative Skin: Positive: Negative Eyes: Positive: Negative ENT: Positive: Ear Ache Respiratory: Positive: Negative Cardiovascular: Positive: Negative Gastrointestinal: Positive: Negative Neurovascular: Positive: Negative Neurological: Positive: Negative Psychological: Positive: Negative Physical Exam - Summary Physical Exam Summary: GENERAL: NAD. WDWN. No pain distress. SKIN: No rashes, sores, lesions, or open wounds. HEENT: Head: AT/NC Eyes: EOM intact. Conjunctiva clear without inflammation or discharge. Ears: Hearing grossly normal. RIGHT ear with moderate purulent yellow/white discharge and mild canal edema. TM intact. Left ear WNL. TM intact. Nose: Nasal mucosa pink and moist. NTTP maxillary and frontal sinus. Throat: Posterior oropharynx without exudates, erythema, or tonsillar enlargement. Uvula midline. NECK: Supple. Nontender. No lymphadenopathy. CHEST: CTAB. No r/r/w. No accessory muscle use. Breathing comfortably and in no distress. CV: RRR. Without m/r/g. Pulses intact. NEURO: Alert. PSYCH: Age appropriate behavior. Triage Information Reviewed: Yes Vital Signs: Vital Signs: Temp Pulse Resp BP Pulse Ox 99.1 F 93 16 119/79 100 08/21/18 17:45 08/21/18 17:45 08/21/18 17:45 08/21/18 17:45 08/21/18 17:45 Vital Signs Reviewed: Yes Ear Complaint Course/Dx - Course Course Of Treatment: Right otitis externa. - Differential Dx/Diagnosis Provider Diagnosis: Otitis externa Discharge - Sign-Out/Discharge Documenting (check all that apply): Patient Departure All imaging exams completed and their final reports reviewed: No Studies - Discharge Plan Condition: Stable Disposition: HOME Prescriptions: Ofloxacin 0.3% (Ear Drop)* [Floxin 0.3% OTIC.ERIC (Ear Drop)] 5 drop BOTH EARS BID #1 btl Patient Education Materials: Otitis Externa (ED) Referrals: Jorge L Chu DO [Primary Care Provider] - Additional Instructions: If you develop a fever, shortness of breath, chest pain, new or worsening symptoms - please call your PCP or go to the ED. - Billing Disposition and Condition Condition: STABLE Disposition: Home
[2018-08-21 17:51] VITALS: BP 119/79
[2018-08-21] MEDS ORDERED: Ciprofloxacin 0.3% OPTH.SOL* 2.5 ML BTL ONE (17:56)
== END 2018-08-21 18:10 | disposition home or self-care (01) ==
LOC: UCEAST 17:26
DX: H60.91 Unspecified otitis externa, right ear (principal); Z88.1 Allergy status to other antibiotic agents; F17.290 Nicotine dependence, other tobacco product, uncomplicated
CPT/HCPCS: 99212; A9270-GY; G0463

== ENCOUNTER 2018-09-10 19:05 | Emergency (ER) | payer OTHER ==
--- NOTE | 2018-09-10 20:08 | ED ---
Abdominal Pain/Male - HPI Summary HPI Summary: This patient is a 23 year old M presenting to ED with a chief complaint of diffuse abdominal pain since 8 months ago, worsening in the past month with new suprapubic pain worsening in the past few days. Patient describes pain as popping in the stomach. The patient rates the pain 8/10 in severity. Symptoms aggravated by nothing. Symptoms alleviated by nothing. Patient reports intermittent bloating of abdomen with pain radiating to sides and spine at worst and recently darker stool. Patient states he has had normal bowel movements. Patient denies N/V and constipation. Patient has been to PCP multiple times who completed CT A/P and workup suggesting acid reflux and connective tissue damage. GI physician performed endoscopy with negative results but did not perform colonoscopy. PMHx of asthma, but no DM, HTN, GERD, ulcer. No surgeries. FHx of DM and stroke but not cardiac disease or HTN. 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 - History of Current Complaint Chief Complaint: EDAbdPain Stated Complaint: "ABDOMINAL PAIN PER PT" Time Seen by Provider: 09/10/18 19:48 Hx Obtained From: Patient Onset/Duration: Lasting Weeks - 8 weeks, Still Present, Worse Since - Past month and past few days Timing: Constant, Intermittent - Intermittent bloating Severity Currently: Severe Pain Intensity: 8 Pain Scale Used: 0-10 Numeric Location: Diffuse, Suprapubic - Pain beginning within past few days Radiates: Yes Radiates to: Back, Flank Character: Other: - "Popping" Aggravating Factor(s): Nothing Alleviating Factor(s): Nothing Associated Signs And Symptoms: Positive: Other - Normal bowel movements, Intermittent bloating. Negative: Constipation, Nausea, Vomiting - Allergies/Home Medications Allergies/Adverse Reactions: Allergies Allergy/AdvReac Type Severity Reaction Status Date / Time terbinafine Allergy Hives Verified 09/10/18 19:22 Home Medications: Home Medications NK [No Home Medications Reported] 09/10/18 [History Confirmed 09/10/18] PMH/Surg Hx/FS Hx/Imm Hx Previously Healthy: No Endocrine/Hematology History: Denies: Hx Anticoagulant Therapy, Hx Blood Disorders, Hx Diabetes, Hx Thyroid Disease Cardiovascular History: Denies: Hx Hypertension Respiratory History: Reports: Hx Asthma Denies: Hx Chronic Obstructive Pulmonary Disease (COPD) GI History: Denies: Hx Gastroesophageal Reflux Disease, Hx Ulcer History: Denies: Hx Acute Renal Failure Musculoskeletal History: Denies: Hx Arthritis, Other Musculoskeletal History Sensory History: Reports: Hx Contacts or Glasses Opthamlomology History: Reports: Hx Contacts or Glasses Neurological History: Denies: Hx Peripheral Neuropathy Psychiatric History: Reports: Hx Anxiety, Hx Substance Abuse - Methamphetamines , Alcohol Denies: Hx Depression - Surgical History Surgery Procedure, Year, and Place: None - Immunization History Date of Tetanus Vaccine: unknown Date of Influenza Vaccine: no Infectious Disease History: No Infectious Disease History: Denies: Hx Hepatitis, Hx Human Immunodeficiency Virus (HIV), Hx of Known/ Suspected MRSA, Hx Shingles, Traveled Outside the [place] in Last 30 Days - Family History Known Family History: Positive: Diabetes, Other - Stroke - great-grandparents Negative: Cardiac Disease, Hypertension Family History: Stroke - great-grandparents - Social History Alcohol Use: Occasionally Alcohol Amount: sober Hx Substance Use: Yes Substance Use Type: Reports: Other - Methamphetamines, clean since 2018 Substance Use Comment - Amount & Last Used: unspecified Hx Tobacco Use: Yes Smoking Status (MU): Heavy Every Day Tobacco Smoker Type: eCigarettes Amount Used/How Often: e cigarettes - 1-2 per day Review of Systems Negative: Fever Gastrointestinal: Negative - Constipation, Other - Darker stool Positive: Abdominal Pain, Other - Intermittent bloating, normal bowel movements. Negative: Vomiting, Nausea All Other Systems Reviewed And Are Negative: Yes Physical Exam - Summary Physical Exam Summary: VITAL SIGNS: Reviewed. GENERAL: Patient is a well-developed and nourished male who is lying comfortable in the stretcher. Patient is not in any acute respiratory distress. HEAD AND FACE: Normocephalic and atraumatic. EYES: PERRLA, EOMI x 2, No injected conjunctiva. EARS: Hearing grossly intact. Ear canals and tympanic membranes are WNL. MOUTH: Oropharynx within normal limits. NECK: Supple, trachea is midline, no adenopathy, no JVD. CHEST: Symmetric, no tenderness at palpation LUNGS: Clear to auscultation bilaterally. No wheezing or crackles. CVS: RRR, S1 and S2 present, no murmurs or gallops appreciated. ABDOMEN: Soft, diffuse tenderness. Slight distension. Positive bowel sounds. No rebound no guarding, and no masses palpated. No abdominal bruit or pulsations. EXTREMITIES: FROM in all major joints, no edema, no cyanosis or clubbing. NEURO: Alert and oriented x 3. No acute neurological deficits. Speech is normal. SKIN: Dry and warm RECTAL EXAM: normal sphincter tone, no melena or bright rectum. Triage Information Reviewed: Yes Vital Signs On Initial Exam: Initial Vitals Temp Pulse Resp BP Pulse Ox 97.6 F 81 16 147/92 97 09/10/18 19:17 09/10/18 19:17 09/10/18 19:17 09/10/18 19:17 09/10/18 19:17 Vital Signs Reviewed: Yes Diagnostics - Vital Signs Vital Signs Temp Pulse Resp BP Pulse Ox 09/10/18 19:17 97.6 F 81 16 147/92 97 - Laboratory Result Diagrams: 09/10/18 20:15 09/10/18 20:15 Lab Statement: Any lab studies that have been ordered have been reviewed, and results considered in the medical decision making process. Abdominal Pain Male Course/Dx - Course Assessment/Plan: This patient is a 23-year-old male who presents to the emergency department with chief complaint of having abdominal pain for the last 8 months. The patient has seen the primary care physician, has had an abdominal pelvic CT about 6 months ago, and has seen GI who did an endoscopy without any significant findings. Patient reports that he has an episode of abdominal pain for the last 3 days therefore he decided to come to the emergency department for further workup and management. Blood test results without any significant abnormality except for creatinine 1.29, urinalysis is negative for UTI, and Guaic is negative. Blood work without any significant abnormality. The patient was given Toradol and IV fluids. The patient is awaiting for an abdominopelvic CT resolved. The patient will be signed out to Dr. Garrison for further workup and management. Patient will be signed out at shift change. - Diagnoses Provider Diagnoses: Chronic abdominal pain Discharge - Sign-Out/Discharge Documenting (check all that apply): Patient Departure - Sign-out, Sign-Out Patient Signing out patient TO: Nael Cornelius - Awaiting CT A/P, pending disposition Patient Received Moderate/Deep Sedation with Procedure: No - Discharge Plan Condition: Stable Disposition: HOME Patient Education Materials: Chronic Abdominal Pain (ED) Referrals: Chu,Jorge L Don, DO [Primary Care Provider] - Additional Instructions: The tests we did here tonight were all normal, no specific cause of your chronic pain is evident. 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 - Billing Disposition and Condition Condition: STABLE Disposition: Home - Attestation Statements Document Initiated by Vaibhavibkary: Yes Documenting Scribe: Jackson Juarez Provider For Whom Joe is Documenting (Include Credential): Deepak Elaine MD Scribe Attestation: I, Jackson Juarez, scribed for Deepak Elaine MD on 09/11/18 at 1044. Scribe Documentation Reviewed: Yes Provider Attestation: The documentation as recorded by the Jackson richard accurately reflects the service I personally performed and the decisions made by me, Deepak Elaine MD Status of Scribe Document: Viewed
[2018-09-10 20:30] LABS: ABS Eosinophils 0.1 10^3/ul (0-0.6); ABS Lymphocytes 1.8 10^3/ul (1.0-4.8); ABS Monocytes 0.4 10^3/ul (0-0.8); ABS Neutrophils 3.5 10^3/ul (1.5-7.7); Eosinophil % 1.9 %; Hematocrit 42 % (42-52); Hemoglobin 13.9 g/dL (14.0-18.0); Lymphocyte % 31.2 %; Mean Corpuscular HGB Conc 33 g/dL (31-36); Mean Corpuscular Hemoglobin 29 pg (27-31); Mean Corpuscular Volume 87 fL (80-94); Mean Platelet Volume 8.6 fL (7.4-10.4); Platelet Count 206 10^3/uL (150-450); Red Blood Count 4.79 10^6 /uL (4.18-5.48); Red Cell Distribution Width 14 % (10.5-15); White Blood Count 5.9 10^3/uL (3.5-10.8)
[2018-09-10 20:39] LABS: Urine Appearance Cloudy; Urine Bilirubin Negative (Negative); Urine Blood Negative (Negative); Urine Color Yellow; Urine Glucose Negative (Negative); Urine Ketones Negative (Negative); Urine Nitrite Negative (Negative); Urine Protein Negative (Negative); Urine Specific Gravity 1.019 (1.010-1.030); Urine Urobilinogen Negative (Negative)
[2018-09-10 20:42] LABS: ALT 28 U/L (7-52); AST 18 U/L (13-39); Albumin 4.5 g/dL (3.2-5.2); Albumin/Globulin Ratio 1.6 (1-3); Alkaline Phosphatase 53 U/L (34-104); Anion Gap 6 mmol/L (2-11); BUN/Creatinine Ratio 7.8 (8-20); Blood Urea Nitrogen 10 mg/dL (6-24); C Reactive Protein < 1.00 mg/L (<8.01); CO2 Carbon Dioxide 27 mmol/L (22-32); Calcium 9.3 mg/dL (8.6-10.3); Chloride 105 mmol/L (101-111); Creatine Kinase 153 U/L (10-223); EGFR African American 83.5 (>60); Globulin 2.8 g/dL (2-4); Glucose 91 mg/dL (70-100); Magnesium 1.9 mg/dL (1.9-2.7); Potassium 3.8 mmol/L (3.5-5.0); Sodium 138 mmol/L (135-145); Total Protein 7.3 g/dL (6.4-8.9)
[2018-09-10] MEDS ORDERED: Ketorolac INJ* 30 MG/ML 1 ML VIAL IV PUSH ONE (21:16)
[2018-09-10] MEDS ORDERED: NS 0.9% 1000 ML** 1,000 ML IV ONE (21:16)
[2018-09-10] MEDS ORDERED: Iohexol 300* (CONTRAST) 10 ML SDV IV ONE (21:48)
--- NOTE | 2018-09-10 23:14 | ED ---
Progress - Progress Note Progress Note: Patient was signed out from Dr. Elaine at end of shift, pending CT Abd/Pel. CT Abd/Pel reveals, per radiologist, IMPRESSION: Negative CT abdomen/pelvis. No acute process is identified. ED physician has reviewed this radiology report. Course/Dx - Course Course Of Treatment: Patient was signed out from Dr. Elaine at end of shift, pending CT Abd/Pel. CT Abd/Pel reveals, per radiologist, IMPRESSION: Negative CT abdomen/pelvis. No acute process is identified. ED physician has reviewed this radiology report. Patient will be discharged with chronic abd pain. Patient is advised to follow up with PCP in 3 days. Patient is agreeable with this plan. - Diagnoses Provider Diagnoses: Chronic abdominal pain Discharge - Sign-Out/Discharge Documenting (check all that apply): Patient Departure, Receiving Sign-Out Receiving patient FROM: Deepak Elaine Patient Received Moderate/Deep Sedation with Procedure: No - Discharge Plan Condition: Stable Disposition: HOME Patient Education Materials: Chronic Abdominal Pain (ED) Referrals: Jorge L Chu DO [Primary Care Provider] - Additional Instructions: The tests we did here tonight were all normal, no specific cause of your chronic pain is evident. 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 - Billing Disposition and Condition Condition: STABLE Disposition: Home - Attestation Statements Document Initiated by Joe: Yes Documenting Scribe: Carlota Armstrong Provider For Whom Joe is Documenting (Include Credential): MD Vaibhav Fergusonibkary Attestation: Carlota Mcgrath, scribed for Nael Cornelius MD on 09/10/18 at 2356. Scribe Documentation Reviewed: Yes Provider Attestation: The documentation as recorded by the Carlota richard accurately reflects the service I personally performed and the decisions made by me, Nael Cornelius MD Status of Joe Document: Viewed
[2018-09-10 23:20] VITALS: BP 120/71
== END 2018-09-10 23:20 | disposition home or self-care (01) ==
LOC: ED 19:05
DX: R10.9 Unspecified abdominal pain (principal); G89.29 Other chronic pain; Z87.09 Personal history of other diseases of the respiratory system; F17.210 Nicotine dependence, cigarettes, uncomplicated
CPT/HCPCS: 36415; 74177; 80053; 81003; 82272; 82550; 83605; 83690; 83735; 83880; 85025; 86140; 96361; 96374; 99282; J1885; Q9967

== ENCOUNTER 2019-04-20 13:51 | Emergency (ER) | payer SELFPAY ==
[2019-04-20 14:13] VITALS: BP 155/82
[2019-04-20] MEDS ORDERED: Ibuprofen TAB* 600 MG PO ONE (14:16)
--- NOTE | 2019-04-20 14:43 | UC ---
Ear Complaint HPI - HPI Summary HPI Summary: 23-year-old male presents with one-day history of general malaise, headache, nasal congestion, bilateral ear pain, decreased hearing in the right ear, and sore throat. Reports frontal headache that radiates over the top of his head and into the back of his neck. No known sick contact. He has not had his flu shot. Denies fever, chills, ear drainage, tinnitus, vertigo, visual disturbances, photophobia, dysphagia, chest pain, shortness of breath, cough, abdominal pain, nausea, or vomiting. - History of Current Complaint Chief Complaint: UCEar Stated Complaint: EAR PAIN Time Seen by Provider: 04/20/19 14:28 Hx Obtained From: Patient Pain Intensity: 10 - Allergies/Home Medications Allergies/Adverse Reactions: Allergies Allergy/AdvReac Type Severity Reaction Status Date / Time terbinafine Allergy Hives Verified 04/20/19 14:08 Home Medications: Home Medications Acetaminophen [Mapap] 500 mg PO ONCE PRN 04/20/19 [History Confirmed 04/20/19] PMH/Surg Hx/FS Hx/Imm Hx Previously Healthy: Yes - Denies significant PMH Other History Of: Negative For: Anticoagulant Therapy - Surgical History Surgical History: None Surgery Procedure, Year, and Place: None - Family History Known Family History: Positive: Diabetes, Other - Stroke - great-grandparents Family History: Stroke - great-grandparents - Social History Occupation: Unemployed Lives: Alone Alcohol Use: Occasionally Alcohol Amount: sober Substance Use Type: Other Substance Use Comment - Amount & Last Used: unspecified Smoking Status (MU): Heavy Every Day Tobacco Smoker Type: Smokeless Tobacco Amount Used/How Often: e cigarettes - 1-2 per day Household Exposure Type: Cigarettes Review of Systems All Other Systems Reviewed And Are Negative: Yes Constitutional: Negative: Fever, Chills Skin: Negative: Rash Eyes: Negative: Blurred Vision, Diplopia, Drainage, Eye Redness, Photophobia ENT: Positive: Sore Throat, Ear Ache, Nasal Discharge, Sinus Congestion. Negative: Sinus Pain/Tenderness Respiratory: Negative: Shortness Of Breath, Cough Cardiovascular: Negative: Palpitations, Chest Pain Gastrointestinal: Negative: Abdominal Pain, Vomiting, Nausea Genitourinary: Positive: Negative Musculoskeletal: Positive: Negative Neurological: Positive: Headache Is Patient Immunocompromised?: No Physical Exam - Summary Physical Exam Summary: GENERAL APPEARANCE: Well developed, well nourished, alert and cooperative, and appears to be in no acute distress. EYES: Conjunctiva clear. No drainage. PERRL, EOM intact. Vision is grossly intact. EARS: Right external auditory canal and tympanic membrane clear. Left external auditory canal with moderate amount of cerumen, TM partially obscured but no erythema noted. NOSE: Mild-moderate nasal congestion. No nasal discharge. THROAT: Mild pharyngeal erythema. No tonsilar inflammation, swelling, exudate, or lesions. Uvula midline. NECK: Neck supple, non-tender without lymphadenopathy. Full ROM. No nuchal rigidity. CARDIAC: Normal S1 and S2. No S3, S4 or murmurs. Rhythm is regular. There is no peripheral edema, cyanosis or pallor. Extremities are warm and well perfused. Capillary refill is less than 2 seconds. Peripheral pulses intact. LUNGS: Clear to auscultation without rales, rhonchi, wheezing or diminished breath sounds. ABDOMEN: Positive bowel sounds. Soft, nondistended, nontender. No guarding or rebound. No masses or hepatosplenomegally. MUSKULOSKELETAL: ROM intact to all extremities. No joint erythema or tenderness. Normal muscular development. Normal gait. NEUROLOGICAL: Strength and sensation symmetric and intact throughout. SKIN: Skin normal color, texture and turgor with no lesions or eruptions. Triage Information Reviewed: Yes Vital Signs: Initial Vital Signs Temp 99.6 F 04/20/19 14:03 Pulse 90 04/20/19 14:03 Resp 20 04/20/19 14:03 BP 155/82 04/20/19 14:03 Pulse Ox 98 04/20/19 14:03 Vital Signs Reviewed: Yes Ear Complaint Course/Dx - Course Course Of Treatment: 23-year-old male presents with one-day history of general malaise, headache, nasal congestion, bilateral ear pain, decreased hearing in the right ear, and sore throat. Reports frontal headache that radiates over the top of his head and into the back of his neck. No known sick contact. He has not had his flu shot. Denies fever, chills, ear drainage, tinnitus, vertigo, visual disturbances, photophobia, dysphagia, chest pain, shortness of breath, cough, abdominal pain, nausea, or vomiting. Afebrile. Hypertensive otherwise vital signs stable. Patient had non-erythematous TMs, mild to moderate nasal congestion, mild pharyngeal erythema without tonsillar swelling or exudate, no cervical lymphadenopathy, clear bilateral breath sounds, and otherwise unremarkable exam. Rapid flu test was negative. Discussed results with the patient and I'm recommending symptomatic treatment for viral upper respiratory infection. He is to return here or follow up with his primary care provider in 3-5 days if symptoms are not improving. Anticipatory guidance warning symptoms require immediate evaluation the emergency room were reviewed with the patient. Verbalizes understanding and agrees with plan of care. - Differential Dx/Diagnosis Differential Diagnosis/HQI/PQRI: Cerumen Impaction, Otitis Externa, Otitis Media , Pharyngitis, URI Provider Diagnosis: Viral URI Discharge ED - Sign-Out/Discharge Documenting (check all that apply): Patient Departure All imaging exams completed and their final reports reviewed: No Studies - Discharge Plan Condition: Stable Disposition: HOME Patient Education Materials: Upper Respiratory Infection (ED) Forms: *Work Release Referrals: Non Staff,Doctor [Primary Care Provider] - Additional Instructions: The flu test performed in the clinic today was negative. Your history and exam are consistent with a viral upper respiratory infection. Viral infections do not respond to antibiotics and are limited to the treatment of symptoms. Viral infections typically run their course in 7-10 days. Drink plenty of fluids to avoid dehydration especially if you are running any fever. Use a saline rinse kit such as Neti Pot or NeilMed at least twice a day to help thin secretions and promote drainage of the sinuses. Use fluticasone (Flonase) nasal spray 2 sprays each nostril once daily. Take over the counter acetaminophen (Tylenol) or ibuprofen (Advil, Motrin) according to directions as needed for pain or fever. Take an over the counter decongestant such as Sudafed according to direction for any congestion. Use salt water gargles several times a day if you have a sore throat. You may also use Chloraseptic spray or Cepacol lonzenges according to directions which contain a numbing medication and can provide some temporary relief from your sore throat. Return here or follow up with your primary care provider in 3-5 days if symptoms persist. Seek immediate medical attention in the emergency room if you have fever greater than 100.5 F despite taking acetaminophen or ibuprofen, worsening headache, visual disturbances, dizziness, confusion, slurred or difficulty speaking, weakness, numbness, or tinging in your arms or legs, drainage or blood from the ear(s), have chest pain, difficulty breathing, are unable to swallow, or have any worsening of symptoms. - Billing Disposition and Condition Condition: STABLE Disposition: Home - Attestation Statements Provider Attestation: Per institutional requirements, I have reviewed the chart, however, I was not consulted specifically or made aware of this patient by the midlevel provider. I did not personally evaluate, interact with , or disposition this patient.
[2019-04-20 15:20] LABS: Influenza A Molecular NEGATIVE (Negative); Influenza B Molecular NEGATIVE (Negative)
== END 2019-04-20 15:55 | disposition home or self-care (01) ==
LOC: UCEAST 13:51
DX: J06.9 Acute upper respiratory infection, unspecified (principal); H92.03 Otalgia, bilateral; F17.290 Nicotine dependence, other tobacco product, uncomplicated; Z88.8 Allergy status to other drugs, medicaments and biological substances
CPT/HCPCS: 99212; A9270-GY; G0463

== ENCOUNTER 2024-01-22 19:31 | Observation (INO) ==
[2024-01-22 20:12] LABS: ABS Eosinophils 0.1 10^3/uL (0.0-0.5); ABS Lymphocytes 2.7 10^3/uL (1.0-4.8); ABS Monocytes 0.5 10^3/uL (0.0-1.1); ABS Neutrophils 3.5 10^3/uL (1.5-7.6); ABS Nucleated RBC 0.01 10^3/ul; Eosinophil % 1.5 %; Hematocrit 42.8 % (38-53); Hemoglobin 14.3 g/dL (13.2-16.3); Lymphocyte % 39.4 %; Mean Corpuscular Hemoglobin 29.3 pg (27-33); Mean Corpuscular Hgb Conc 33.3 g/dL (31-36); Mean Corpuscular Volume 87.8 fL (80-97); Mean Platelet Volume 8.6 fL (7.5-11.2); Nucleated Red Blood Cells % 0.1 %/100WBC (0.0-0.8); Platelet Count 179 10^3/uL (150-450); Red Blood Count 4.87 10^6/uL (4.06-5.63); Red Cell Distribution Width 13.6 % (12-17); White Blood Count 6.8 10^3/uL (3.6-10.2)
[2024-01-22 20:18] LABS: INR 0.96 (0.85-1.14)
[2024-01-22] MEDS: Pantoprazole VIAL 40 MG VIAL IV ONE (20:41)
[2024-01-22] MEDS: cefTRIAXone 1 gm/50 mL D5W 1 GM/50 ML BAG IV ONE (20:41)
[2024-01-22 20:49] LABS: Alcohol, S < 13 mg/dL (<13); Lipase 31 U/L (11.0-82.0)
[2024-01-22 20:50] LABS: Albumin 4.5 g/dL (3.2-5.2); Albumin/Globulin Ratio 1.8 (1-3); Creatinine, Serum 0.94 mg/dL (0.67-1.17); Globulin 2.5 g/dL (2-4); Potassium 3.4 mmol/L (3.5-5.0); Total Bilirubin 0.7 mg/dL (0.2-1.0); eGFR CKD-EPI 113.2 (>60)
[2024-01-22 21:54] LABS: High Sensitivity Troponin 1 Hr 4 pg/mL (<20)
[2024-01-22 22:07] LABS: Hematocrit 40.8 % (38-53)
[2024-01-22] MEDS: Octreotide Acetate 50 MCG in NS 0.9% 50 ML 50 ML IV ONE (23:02)
[2024-01-22] MEDS ORDERED: Ondansetron 4 mg VIAL 2 MG/ML 2 ml VIAL IV PRN (23:03)
[2024-01-22] MEDS ORDERED: Acetaminophen IV 1 GM/100ML 1,000 MG/100 ML BAG IV PRN (23:16)
[2024-01-22] MEDS: Pantoprazole 80 mg in NS BAG 80 MG/250 ML BAG IV ONE (23:20)
[2024-01-22] MEDS: Octreotide Acetate 500 MCG in NS 0.9% 100 ml BAG 100 ML IV SCH (23:20)
[2024-01-22] MEDS: NS 0.9% 1000 ml BAG 1,000 ML IV SCH (23:39)
[2024-01-23] MEDS: KCL 20 MEQ/100 ML IVPREMIX 20 MEQ/100 ML BAG IV SCH (01:44)
[2024-01-23 05:12] LABS: ABS Eosinophils 0.2 10^3/uL (0.0-0.5); ABS Lymphocytes 2.8 10^3/uL (1.0-4.8); ABS Monocytes 0.5 10^3/uL (0.0-1.1); ABS Neutrophils 2.2 10^3/uL (1.5-7.6); ABS Nucleated RBC 0.01 10^3/ul; Eosinophil % 2.7 %; Hematocrit 41.9 % (38-53); Hemoglobin 13.9 g/dL (13.2-16.3); Lymphocyte % 49.6 %; Mean Corpuscular Hemoglobin 29.5 pg (27-33); Mean Corpuscular Hgb Conc 33.3 g/dL (31-36); Mean Corpuscular Volume 88.5 fL (80-97); Mean Platelet Volume 8.6 fL (7.5-11.2); Nucleated Red Blood Cells % 0.1 %/100WBC (0.0-0.8); Platelet Count 175 10^3/uL (150-450); Red Blood Count 4.73 10^6/uL (4.06-5.63); Red Cell Distribution Width 13.9 % (12-17); White Blood Count 5.6 10^3/uL (3.6-10.2)
[2024-01-23 05:32] LABS: Calcium 8.9 mg/dL (8.6-10.3); Creatinine, Serum 0.89 mg/dL (0.67-1.17); Potassium 4.7 mmol/L (3.5-5.0); eGFR CKD-EPI 119.7 (>60)
[2024-01-23] MEDS: Pantoprazole 80 mg in NS BAG 80 MG/250 ML BAG IV SCH (09:32)
[2024-01-23] MEDS ORDERED: fentaNYL 100 mcg/2 ml 50 MCG/ML VIAL ONE (09:54)
[2024-01-23] MEDS ORDERED: Midazolam 10 mg/10 ml VIAL 1 mg/ml 10 ml VIAL (10 mg) ONE (09:54)
[2024-01-23 12:11] VITALS: BP 108/90
[2024-01-23] MEDS ORDERED: cefTRIAXone 1 gm/50 mL D5W 1 GM/50 ML BAG IV SCH (21:00)
== END 2024-01-23 12:12 | disposition home or self-care (01) ==
LOC: ED 19:31 → EDHOLD 19:31 → SUATTDRO 23:06 → EDHOLD 01-23 12:11
PROVIDERS: ADMIT Internal Medicine; ATTEND Hospitalist